=== PATIENT | female | born 1985 | race African-American/Black ===

== ENCOUNTER 2016-05-23 16:39 | Emergency (ER) | payer MEDICAID ==
[~2016-05-23] VITALS: Ht 167.6 cm; Wt 83.5 kg
[~2016-05-23 16:39] MED LIST: ALBUTEROL SULF8.5 GM INH; CYCLOBENZAPRINE10 MG ORAL; IBUPROFEN600 MG ORAL; IBUPROFEN800 MG PO; KEFLEX500 MG ORAL; NITROFURANTOIN100 M2 ORAL; NKM; NORCO 5-325 TA1 EACH ORAL; SERTRALINE HCL25 MG ORAL; TYLENOL EXTRA500 MG ORAL; ZOFRAN4 MG ORAL
--- NOTE | 2016-05-23 17:11 | Emergency Room Report ---
History of Present Illness General Chief Complaint: Dyspnea/Respdistress Source: Patient Present Illness HPI Patient presents with complaints of pain just below her left breast over the rib cage Patient reports that this pain has been intermittent over the past several months She feels area more with pain with touch Denies any cough To me the patient denied any shortness of breath however there was a note by triage regarding shortness of breath Patient reports that there is some pleuritic sensation Which likely is the report by triage Patient denies any recent travel denies any calf swelling or pain denies any previous DVTs Allergies: Coded Allergies: No Known Allergies (Unverified , 08/25/15) Patient History Past Medical History: see triage record Pertinent Family History: none Last Menstrual Period: [place] shot : 7 Para: 3 Reviewed Nursing Documentation: PMH: Agreed, PSxH: Agreed Nursing Documentation-PMH Hx Cardiac Problems: No Hx Hypertension: No Hx Pacemaker: No Hx Asthma: Yes Hx COPD: No Hx Diabetes: No Hx Cancer: No Hx Gastrointestinal Problems: No Hx Dialysis: No Hx Neurological Problems: No Hx Cerebrovascular Accident: No Hx Seizures: No Review of Systems All Other Systems: negative except mentioned in HPI Physical Exam Vital Signs Date Time Temp Pulse Resp B/P Pulse Ox O2 Delivery O2 Flow Rate FiO2 05/23/16 16:42 98.4 77 16 125/90 100 Room Air Sp02 EP Interpretation: reviewed, normal General Appearance: well appearing, no apparent distress Head: normocephalic, atraumatic Eyes: bilateral eye EOMI, bilateral eye PERRL ENT: hearing grossly normal, normal pharynx, TMs + canals normal, uvula midline Neck: full range of motion, supple, no meningismus, no bony tend Respiratory: lungs clear, normal breath sounds, no rhonchi, no respiratory distress, no retraction, no accessory muscle use Cardiovascular #1: normal peripheral pulses, regular rate, rhythm, no edema, no gallop, no JVD, no murmur, other - Patient does have some reproducible discomfort on palpation over the lower left rib cage area Gastrointestinal: normal bowel sounds, non tender, soft, no mass, no organomegaly, non-distended, no guarding, no hernia, no pulsatile mass, no rebound Genitourinary: no CVA tenderness Musculoskeletal: normal inspection Neurologic: oriented x3, responsive, 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, motor strength/ tone normal, sensory intact Psychiatric: mood/affect normal Skin: normal color, no rash, warm/dry, palpation normal Lymphatic: normal inspection, no adenopathy Medical Decision Making Diagnostic Impression: Primary Impression: Chest pain of uncertain etiology ER Course Multiple differentials are considered the regarding the patient's discomfort including but not limited to cardiac, cardiopulmonary, vascular pathology such as pulmonary embolism Patient does not have many risk factors regarding pulmonary embolism Her presentation does not appear to be in line Patient's heart rate is appropriate EKG was normal Patient has had several x-rays in the past and my differential for pneumothorax was lower given the patient's clear lung sounds Patient was also found to have a nodule previously and we did not want to expose the patient to any further radiation Patient will continue on anti-inflammatories as an outpatient process requires close outpatient followup EKG Diagnostic Results Rate: normal Rhythm: NSR ST Segments: no acute changes Rhythm Strip Diag. Results EP Interpretation: yes Rate: 78 Rhythm: NSR, no PVC's, no ectopy Last Vital Signs Date Time Temp Pulse Resp B/P Pulse Ox O2 Delivery O2 Flow Rate FiO2 05/23/16 17:02 88 18 Room Air 05/23/16 16:42 98.4 125/90 100 Status: improved Disposition: HOME, SELF-CARE Condition: Improved Scripts Ibuprofen* (MOTRIN*) 600 Mg Tablet 600 MG ORAL Q8H Y for For Pain, #20 TAB 0 Refills Prov: KELLIE LEWIS D.O. 05/23/16 Additional Instructions: Patient is provided with the discharge instructions notified to follow up with primary doctor in the next 2-3 days otherwise return to the er with any worsening symptoms. KELLIE LEWIS D.O. May 23, 2016 17:11
[2016-05-23 17:22] VITALS: BP 121/61
[2016-05-23] MEDS ORDERED: IBUPROFEN600 MG ORAL (17:23)
[2016-05-23 17:49] VITALS: BP 121/61
--- NOTE | 2016-05-26 15:53 | Cardiology Report ---
APPROVED REPORT EKG Measurement Heart [id number] Normal sinus rhythm Normal ECG
== END 2016-05-23 18:55 | disposition home or self-care (01) ==
LOC: EMR 18:54
DX: R07.9 Chest pain, unspecified (principal); Z87.09 Personal history of other diseases of the respiratory system
CPT/HCPCS: 93005; 99283

== ENCOUNTER 2016-12-14 15:33 | Emergency (ER) | payer MEDICAID ==
[~2016-12-14] VITALS: Ht 167.6 cm; Wt 86.2 kg
[2016-12-14 15:53] VITALS: BP 142/86
[2016-12-14] MEDS ORDERED: Metoclopramide 10mg/2ml Inj IVP ONE (16:00)
[2016-12-14] MEDS ORDERED: DiphenhydrAMINE 50mg/ml Inj IVP ONE (16:00)
--- NOTE | 2016-12-14 16:00 | Emergency Room Report ---
History of Present Illness General Chief Complaint: Headache Source: Patient Present Illness HPI Patient 31-year-old female presented after increased a left-sided headache a gradual onset for the past 2 weeks. Patient stated that headache at onset after she had control and time placed her left upper extremity. Patient denies any fever. She reports having no visual changes. She prior history of questionable lupus. She had not been vomiting. She denies any dysuria Allergies: Coded Allergies: No Known Allergies (Unverified , 08/25/15) Patient History Past Medical History: see triage record Last Menstrual Period: last week Now: No Reviewed Nursing Documentation: PMH: Agreed, PSxH: Agreed Nursing Documentation-PMH Past Medical History: No History, Except For Hx Cardiac Problems: No Hx Hypertension: No Hx Pacemaker: No Hx Asthma: Yes Hx COPD: No Hx Diabetes: No Hx Cancer: No Hx Gastrointestinal Problems: No Hx Dialysis: No Hx Neurological Problems: No Hx Cerebrovascular Accident: No Hx Seizures: No Review of Systems All Other Systems: negative except mentioned in HPI Physical Exam Vital Signs Date Time Temp Pulse Resp B/P Pulse Ox O2 Delivery O2 Flow Rate FiO2 12/14/16 15:42 97.9 71 18 142/86 100 Room Air Sp02 EP Interpretation: reviewed, normal General Appearance: normal inspection, well appearing, no apparent distress, alert, GCS 15, non-toxic Head: atraumatic ENT: normal ENT inspection, hearing grossly normal, normal voice Neck: normal inspection, full range of motion, supple, no bony tend Respiratory: normal inspection, lungs clear, normal breath sounds, no respiratory distress, no retraction, no wheezing Cardiovascular #1: regular rate, rhythm, no edema Gastrointestinal: normal inspection, normal bowel sounds, non tender, soft, no guarding, no hernia Genitourinary: no CVA tenderness Musculoskeletal: normal inspection, back normal, normal range of motion Neurologic: normal inspection, alert, oriented x3, responsive, 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 Because of complexity of patient's case laboratory testing. Urinalysis showed evidence of urinary tract infection. Patient was given Reglan and Benadryl with improvement in her headache. The patient nonfocal neurologic exam and does not appear to require CT imaging at this time. Patient was given prescription for dexamethasone as well as for oral antibiotics Labs Test 12/14/16 16:19 Urine Color Pale yellow Urine Appearance Clear Urine pH 8 (4.5-8.0) Urine Specific [place] 1.015 (1.005-1.035) Urine Protein Negative (NEGATIVE) Urine Glucose (UA) Negative (NEGATIVE) Urine Ketones Negative (NEGATIVE) Urine Occult Blood Negative (NEGATIVE) Urine Nitrite Negative (NEGATIVE) Urine Bilirubin Negative (NEGATIVE) Urine Urobilinogen Normal MG/DL (0.0-1.0) Urine Leukocyte Esterase 1+ (NEGATIVE) Urine RBC 0-2 /HPF (0 - 2) Urine WBC 2-4 /HPF (0 - 2) Urine Squamous Epithelial Cells Few /LPF (NONE/OCC) Urine Bacteria Few /HPF (NONE) Last Vital Signs Date Time Temp Pulse Resp B/P Pulse Ox O2 Delivery O2 Flow Rate FiO2 12/14/16 15:53 97.9 18 142/86 100 Room Air 12/14/16 15:42 71 Status: improved Disposition: HOME, SELF-CARE Condition: Stable Scripts Dexamethasone (DEXAMETHASONE) 4 Mg Tablet 4 MG PO DAILY for 3 Days, TAB Prov: Brian Soto 12/14/16 Nitrofurantoin Monohyd/M-Cryst* (MACROBID 100 MG*) 100 Mg Capsule 100 MG ORAL EVERY 12 HOURS, #14 CAP Prov: Brian Soto 12/14/16 Brian Soto Dec 14, 2016 16:00
[2016-12-14 16:36] LABS: APPEARANCE,URINE CLEAR; KETONES,URINE NEGATIVE (NEGATIVE); LEUKOCYTE ESTERASE ,URINE 1+ (NEGATIVE); NITRITE,URINE NEGATIVE (NEGATIVE); PH,URINE 8 (4.5-8.0); PROTEIN,URINE NEGATIVE (NEGATIVE); UROBILINOGEN,URINE NORMAL MG/DL (0.0-1.0)
[2016-12-14 16:51] LABS: BACTERIA,URINE FEW /HPF; RBC,URINE 0-2 /HPF (0 - 2); SQUAMOUS EPITHELIAL CELL,UR FEW /LPF (NONE/OCC)
[2016-12-14] MEDS ORDERED: NITROFURANTOIN100 M2 ORAL (16:59)
[2016-12-14] MEDS ORDERED: DEXAMETHASONE4 M1 PO (17:01)
[2016-12-14 17:06] VITALS: BP 131/81
== END 2016-12-14 17:13 | disposition home or self-care (01) ==
LOC: EMR 16:38
DX: R51 Headache (principal); J45.909 Unspecified asthma, uncomplicated
CPT/HCPCS: 81003; 96374; 96375; 99284; J1200; J2765

== ENCOUNTER 2017-09-02 05:24 | Emergency (ER) | payer MEDICAID ==
[~2017-09-02] VITALS: Ht 167.6 cm; Wt 77.6 kg
[~2017-09-02 05:24] MED LIST changes: +DEXAMETHASONE4 M1 PO
[2017-09-02] MEDS ORDERED: AZITHROMYCIN250 MG ORAL (05:46)
[2017-09-02] MEDS ORDERED: PREDNISONE20 MG ORAL (05:46)
[2017-09-02] MEDS ORDERED: ALBUTEROL SULF8.5 GM INH (05:46)
--- NOTE | 2017-09-02 05:46 | Emergency Room Report ---
History of Present Illness General Chief Complaint: Upper Respiratory Illness Source: Patient Present Illness HPI Is a 31-year-old female with history of asthma when she was younger. She presents with chief complaint of shortness of breath and coughing. Been ongoing for about a week now. Now she is coughing up thick yellowish phlegm. No nausea no vomiting. Worse with exertion and inspiration. Also with congestion and runny nose. Had fever at the beginning of the week. Allergies: Coded Allergies: No Known Allergies (Unverified , 08/25/15) Patient History Past Medical History: see triage record, old chart reviewed, asthma Past Surgical History: none Pertinent Family History: none Social History: Denies: smoking Last Menstrual Period: august 20 Now: No : 3 Para: 2 Immunizations: other Reviewed Nursing Documentation: PMH: Agreed; PSxH: Agreed Nursing Documentation-PMH Hx Cardiac Problems: No Hx Hypertension: No Hx Pacemaker: No Hx Asthma: Yes Hx COPD: No Hx Diabetes: No Hx Cancer: No Hx Gastrointestinal Problems: No Hx Dialysis: No Hx Neurological Problems: No Hx Cerebrovascular Accident: No Hx Seizures: No Review of Systems Eye: Denies: eye pain, blurred vision ENT: Reports: nose congestion; Denies: ear pain, throat swelling Respiratory: Reports: cough, shortness of breath Cardiovascular: Denies: chest pain, palpitations Gastrointestinal: Denies: abdominal pain, diarrhea, nausea, vomiting Musculoskeletal: Denies: back pain, joint pain Skin: Denies: rash Neurological: Denies: headache, numbness Endocrine: Denies: increased thirst, increased urine Hematologic/Lymphatic: Denies: easy bruising All Other Systems: negative except mentioned in HPI Physical Exam Vital Signs Date Time Temp Pulse Resp B/P (MAP) Pulse Ox O2 Delivery O2 Flow Rate FiO2 09/02/17 05:26 98.2 70 18 124/61 96 Room Air 98.2 vitals normal Sp02 EP Interpretation: reviewed, normal General Appearance: well appearing, no apparent distress, alert Head: normocephalic, atraumatic Eyes: bilateral eye PERRL, bilateral eye EOMI ENT: hearing grossly normal, normal pharynx Neck: full range of motion, supple, no meningismus Respiratory: chest non-tender, lungs clear, normal breath sounds, other - coughing fits with inspiration Cardiovascular #1: regular rate, rhythm, no murmur Gastrointestinal: normal bowel sounds, non tender, no mass, no organomegaly, no bruit, non-distended Musculoskeletal: back normal, gait/station normal, normal range of motion Psychiatric: mood/affect normal Skin: warm/dry Medical Decision Making Diagnostic Impression: Primary Impression: Upper respiratory infection Qualified Codes: J06.9 - Acute upper respiratory infection, unspecified Additional Impression: Bronchospasm, acute ER Course Patient with an upper respiratory or infection. Most likely viral. Because of the duration and color the phlegm, we'll put on antibiotics. No evidence of any sepsis, ACS, PE, dissection to name a few. Last Vital Signs Date Time Temp Pulse Resp B/P (MAP) Pulse Ox O2 Delivery O2 Flow Rate FiO2 09/02/17 05:30 70 18 Room Air 09/02/17 05:26 98.2 124/61 96 98.2 Status: unchanged Disposition: HOME, SELF-CARE Condition: Stable Scripts Azithromycin* (ZITHROMAX*) 250 Mg Tablet 250 MG ORAL DAILY, #6 TAB 0 Refills Take two tablets by mouth today, then take one tablet by mouth daily for four days Prov: ESTELLE XIE M.D. 09/02/17 Prednisone* (PREDNISONE*) 20 Mg Tablet 60 MG ORAL DAILY, #15 TAB Prov: ESTELLE XIE M.D. 09/02/17 Albuterol Sulfate* (ALBUTEROL SULFATE MDI*) 8.5 Gm Hfa.aer.ad 2 PUFF INH Q4H PRN for cough/wheezing, #1 EA 0 Refills Prov: ESTELLE XIE M.D. 09/02/17 Patient Instructions: Upper Respiratory Infection, Adult Additional Instructions: Follow-up with your doctor in 3-5 days. Return if worse. ESTELLE XIE M.D. Sep 02, 2017 05:46
[2017-09-02 05:51] VITALS: BP 115/82
[2017-09-02 05:53] VITALS: BP 115/82
== END 2017-09-02 05:54 | disposition home or self-care (01) ==
LOC: EMR 05:48
DX: J06.9 Acute upper respiratory infection, unspecified (principal); J98.01 Acute bronchospasm
CPT/HCPCS: 99284

== ENCOUNTER 2017-09-17 20:37 | Emergency (ER) | payer MEDICAID ==
[~2017-09-17] VITALS: Ht 167.6 cm; Wt 81.6 kg
[~2017-09-17 20:37] MED LIST changes: +AZITHROMYCIN250 MG ORAL; +PREDNISONE20 MG ORAL
[2017-09-17] MEDS ORDERED: ATIVAN1 MG ORAL (21:09)
--- NOTE | 2017-09-17 21:10 | Emergency Room Report ---
History of Present Illness General Chief Complaint: General Complaint Source: Patient, Family Member Present Illness HPI Is a 31-year-old female with no significant past medical history. She presents with chief complaint of anxiety and passing out. Her grandmother just and she's been grieving very hard. According to mom she's been hyperventilating to the point of passing out. She is crying all the time. No suicidal thoughts. No nausea no vomiting. No other complaint. Allergies: Coded Allergies: No Known Allergies (Unverified , 08/25/15) Patient History Past Medical History: see triage record, old chart reviewed, asthma Past Surgical History: other Pertinent Family History: none Social History: Denies: smoking Last Menstrual Period: 08/20/17 Now: No Immunizations: other Reviewed Nursing Documentation: PMH: Agreed; PSxH: Agreed Nursing Documentation-PMH Past Medical History: No History, Except For Hx Cardiac Problems: No Hx Hypertension: No Hx Pacemaker: No Hx Asthma: Yes Hx COPD: No Hx Diabetes: No Hx Cancer: No Hx Gastrointestinal Problems: No Hx Dialysis: No Hx Neurological Problems: No Hx Cerebrovascular Accident: No Hx Seizures: No Review of Systems Eye: Denies: eye pain, blurred vision ENT: Denies: ear pain, nose congestion, throat swelling Respiratory: Denies: cough, shortness of breath Cardiovascular: Denies: chest pain, palpitations Gastrointestinal: Denies: abdominal pain, diarrhea, nausea, vomiting Musculoskeletal: Denies: back pain, joint pain Skin: Denies: rash Psychiatric: Reports: depressed feelings, emotional problems Neurological: Denies: headache, numbness Endocrine: Denies: increased thirst, increased urine Hematologic/Lymphatic: Denies: easy bruising All Other Systems: negative except mentioned in HPI Physical Exam Vital Signs Date Time Temp Pulse Resp B/P (MAP) Pulse Ox O2 Delivery O2 Flow Rate FiO2 09/17/17 20:40 98.5 82 16 131/73 97 Room Air 98.4 vitals normal Sp02 EP Interpretation: reviewed, normal General Appearance: well appearing, no apparent distress, alert Head: normocephalic, atraumatic Eyes: bilateral eye PERRL, bilateral eye EOMI ENT: hearing grossly normal, normal pharynx Neck: full range of motion, supple, no meningismus Respiratory: chest non-tender, lungs clear, normal breath sounds Cardiovascular #1: regular rate, rhythm, no murmur Gastrointestinal: normal bowel sounds, non tender, no mass, no organomegaly, no bruit, non-distended Musculoskeletal: back normal, gait/station normal, normal range of motion Neurologic: alert, oriented x3 Psychiatric: depressed affect - crying Skin: warm/dry Medical Decision Making Diagnostic Impression: Primary Impression: Grief reaction ER Course Patient presents with acute grief reaction. Not suicidal homicidal. We'll discharge home. Last Vital Signs Date Time Temp Pulse Resp B/P (MAP) Pulse Ox O2 Delivery O2 Flow Rate FiO2 09/17/17 20:40 98.5 82 16 131/73 97 Room Air 98.4 Status: improved Disposition: HOME, SELF-CARE Condition: Stable Scripts Lorazepam* (ATIVAN*) 1 Mg Tablet 1 MG ORAL THREE TIMES A DAY, #21 TAB Prov: ESTELLE XIE M.D. 09/17/17 Additional Instructions: Follow-up with your doctor in 7 days. Return if symptom worsen. ESTELLE XIE M.D. September 17, 2017 21:10
[2017-09-17] MEDS ORDERED: LORazepam Inj 2mg/ml 1ml IM ONE (21:15)
[2017-09-17 21:16] VITALS: BP 0/0
== END 2017-09-17 21:16 | disposition home or self-care (01) ==
LOC: EMR 21:08
DX: F43.22 Adjustment disorder with anxiety (principal); J45.909 Unspecified asthma, uncomplicated
CPT/HCPCS: 96372; 99283

== ENCOUNTER 2019-04-16 06:04 | Emergency (ER) | payer OTHER, MEDICAID ==
[~2019-04-16] VITALS: Ht 167.6 cm; Wt 88.0 kg
[~2019-04-16 06:04] MED LIST changes: +ATIVAN1 MG ORAL
[2019-04-16 06:24] VITALS: BP 109/60
--- NOTE | 2019-04-16 06:33 | Emergency Room Report ---
History of Present Illness General Chief Complaint: Flu Like Symptoms Source: Patient Present Illness HPI 33-year-old female who presents with cough for 1 day duration. Associated with chills and soreness on chest and back. She states the reason she is here is mainly her chest pressure. She reports that since last night she has had severe pressure in her chest that is not improving this morning. She notes that she also has back aches however the chest pressure is not pain that radiates to the back. She denies any fevers, chills. She did note episodes of loose stools and vomiting yesterday. She has no episodes today and has been tolerating liquids. Patient states she received vaccination for influenza while she was at [employer] on April 10 No smoking history Allergies: Coded Allergies: No Known Allergies (Unverified , 08/25/15) Patient History Past Medical History: none Now: No Nursing Documentation-H Past Medical History: No History, Except For Hx Cardiac Problems: No Hx Hypertension: No Hx Pacemaker: No Hx Asthma: Yes Hx COPD: No Hx Diabetes: No Hx Cancer: No Hx Gastrointestinal Problems: No Hx Dialysis: No Hx Neurological Problems: No Hx Cerebrovascular Accident: No Hx Seizures: No Review of Systems Constitutional: Denies: chills, fever Respiratory: Reports: cough; Denies: shortness of breath Cardiovascular: Reports: chest pain; Denies: palpitations Gastrointestinal: Denies: diarrhea, vomiting Genitourinary: Denies: hematuria, pain Musculoskeletal: Reports: back pain; Denies: joint swelling Skin: Denies: rash, lesions Neurological: Denies: headache, dizziness Physical Exam Vital Signs Date Time Temp Pulse Resp B/P (MAP) Pulse Ox O2 Delivery O2 Flow Rate FiO2 04/16/19 06:12 98.2 72 14 113/69 (84) 97 Room Air Sp02 EP Interpretation: reviewed General Appearance: well appearing, no apparent distress, non-toxic Head: normocephalic, atraumatic Eyes: bilateral eye normal inspection ENT: hearing grossly normal, EOM grossly intact, moist mucus membranes Neck: supple Respiratory: lungs clear, normal breath sounds, no rhonchi, no respiratory distress, no retraction, no accessory muscle use, speaking full sentences Cardiovascular #1: normal inspection, normal peripheral pulses, regular rate, rhythm, no edema, normal capillary refill Cardiovascular #2: 2+ radial (R), 2+ radial (L) Gastrointestinal: soft, non-distended Rectal: deferred Genitourinary: no CVA tenderness Musculoskeletal: normal inspection, back normal, moves extm spontaneously, no lower extremity edema Neurologic: grossly normal Psychiatric: mood/affect normal Skin: warm/dry, normal turgor Medical Decision Making ER Course 33-year-old female who presents with chest pain since yesterday reports associated cough and body aches. She reports getting the influenza vaccination several days ago. Differential includes ACS versus pneumonia versus viral infection Will perform lab testing, EKG, x-ray INFLUENZA A ANTIGEN Final INFLUENZAE A RESULT NEGATIVE INFLUENZA B ANTIGEN Final INFLUENZAE B RESULT NEGATIVE Laboratory Tests Test 04/16/19 06:40 White Blood Count 7.5 K/UL (4.8-10.8) Red Blood Count 3.95 M/UL (4.20-5.40) L Hemoglobin 11.0 G/DL (12.0-16.0) L Hematocrit 33.1 % (37.0-47.0) L Mean Corpuscular Volume 84 FL (80-99) Mean Corpuscular Hemoglobin 28.0 PG (27.0-31.0) Mean Corpuscular Hemoglobin Concent 33.4 G/DL (32.0-36.0) Red Cell Distribution Width 11.9 % (11.6-14.8) Platelet Count 330 K/UL (150-450) Mean Platelet Volume 5.7 FL (6.5-10.1) L Neutrophils (%) (Auto) 61.0 % (45.0-75.0) Lymphocytes (%) (Auto) 29.1 % (20.0-45.0) Monocytes (%) (Auto) 8.4 % (1.0-10.0) Eosinophils (%) (Auto) 1.2 % (0.0-3.0) Basophils (%) (Auto) 0.4 % (0.0-2.0) Sodium Level 143 MMOL/L (136-145) Potassium Level 3.8 MMOL/L (3.5-5.1) Chloride Level 109 MMOL/L (98-107) H Carbon Dioxide Level 25 MMOL/L (21-32) Anion Gap 9 mmol/L (5-15) Blood Urea Nitrogen 13 mg/dL (7-18) Creatinine 0.8 MG/DL (0.55-1.30) Estimate Glomerular Filtration Rate > 60 mL/min (>60) Glucose Level 102 MG/DL (74-106) Calcium Level 8.9 MG/DL (8.5-10.1) Total Bilirubin 0.3 MG/DL (0.2-1.0) Aspartate Amino Transferase (AST) 13 U/L (15-37) L Alanine Aminotransferase (ALT) 22 U/L (12-78) Alkaline Phosphatase 82 U/L (46-116) Troponin I 0.008 ng/mL (0.000-0.056) Total Protein 7.5 G/DL (6.4-8.2) Albumin 3.3 G/DL (3.4-5.0) L Globulin 4.2 g/dL Albumin/Globulin Ratio 0.8 (1.0-2.7) L Microbiology Date/Time Source Procedure Growth Status 04/16/19 06:40 Nasal Nares - Final Complete 04/16/19 06:40 Nasal Nares - Final Complete Lab Results Impression CBC shows mild anemia, CMP shows mild hyperchloremia and microbiology was negative influenza. Patient's troponin within normal limits. EKG Diagnostic Results EKG Time: 06:40 Rate: normal - 63 Rhythm: NSR ST Segments: no acute changes Other Impression LA interval 210, first-degree AV block Rhythm Strip Diag. Results Rhythm Strip Time: 07:44 EP Interpretation: yes Rhythm: NSR Chest X-Ray Diagnostic Results Chest X-Ray Diagnostic Results : Chest X-Ray Ordered: Yes # of Views/Limited/Complete: 2 View Indication: Chest Pain Interpretation: no consolidation, no effusion, no pneumothorax, no acute cardiopulmonary disease Impression: No acute disease Electronically Signed by: Will Reevaluation Time: 07:41 Last Vital Signs Date Time Temp Pulse Resp B/P (MAP) Pulse Ox O2 Delivery O2 Flow Rate FiO2 04/16/19 08:09 98.1 82 17 108/74 100 Room Air Reevaluation Impression Patient's chest x-ray within normal limits. Since lab testing within normal limits. Patient stable for outpatient follow-up and discharge. Recommended to see primary care doctor and follow-up with a pharmaceutical worker Disposition: HOME, SELF-CARE Condition: Stable Scripts No Active Prescriptions or Reported Meds Referrals: [facility] Patient Instructions: Chest Wall Pain Additional Instructions: Please follow-up with your primary care doctor or clinic listed above to be reevaluated for chest pain. Follow-up with pharmaceutical worker as recommended by primary care doctor. Return to emergency room with any new symptoms or worsening symptoms Rafi Solis M.D. Apr 16, 2019 06:33
[2019-04-16 07:10] VITALS: BP 114/64
[2019-04-16 07:12] LABS: BASOPHILS % (AUTO) 0.4 % (0.0-2.0); EOSINOPHILS % (AUTO) 1.2 % (0.0-3.0); HEMATOCRIT 33.1 % (37.0-47.0); LYMPHOCYTES % (AUTO) 29.1 % (20.0-45.0); MEAN CORPUSCULAR VOLUME 84 FL (80-99); MONOCYTES % (AUTO) 8.4 % (1.0-10.0); PLATELET COUNT 330 K/UL (150-450); RED BLOOD COUNT 3.95 M/UL (4.20-5.40); RED CELL DISTRIBUTION WIDTH 11.9 % (11.6-14.8); WHITE BLOOD COUNT 7.5 K/UL (4.8-10.8)
[2019-04-16 07:22] LABS: ANION GAP 9 mmol/L (5-15); BLOOD UREA NITROGEN 13 mg/dL (7-18); CALCIUM 8.9 MG/DL (8.5-10.1); CARBON DIOXIDE 25 MMOL/L (21-32); CHLORIDE 109 MMOL/L (98-107); CREATININE 0.8 MG/DL (0.55-1.30); POTASSIUM 3.8 MMOL/L (3.5-5.1); SODIUM 143 MMOL/L (136-145)
[2019-04-16 07:27] LABS: ALANINE AMINOTRANSFERASE 22 U/L (12-78); ALBUMIN 3.3 G/DL (3.4-5.0); ALBUMIN/GLOBULIN RATIO 0.8 (1.0-2.7); ALKALINE PHOSPHATASE 82 U/L (46-116); ASPARTATE AMINO TRANSFERASE 13 U/L (15-37); BILIRUBIN,TOTAL 0.3 MG/DL (0.2-1.0)
[2019-04-16 08:09] VITALS: BP 108/74
--- NOTE | 2019-04-16 08:10 | Diagnostic Imaging Report ---
EXAM: XR Chest, 2 Views CLINICAL HISTORY: Chest pain TECHNIQUE: Frontal and lateral views of the chest. COMPARISON: No relevant prior studies available. FINDINGS: Lungs: The extreme lung apices are not in the [id number] on the frontal view. No consolidation. Pleural space: Unremarkable. No pleural effusions. No pneumothorax. Heart: Unremarkable. No cardiomegaly. Mediastinum: Unremarkable. Bones/joints: Unremarkable. IMPRESSION: No acute cardiopulmonary process.
== END 2019-04-16 08:10 | disposition home or self-care (01) ==
LOC: EMR 07:08
DX: R05 Cough (principal); R07.9 Chest pain, unspecified
CPT/HCPCS: 36415; 71046; 80053; 84484; 85025; 86710; 93005; 99284

== ENCOUNTER 2019-07-04 19:44 | Emergency (ER) | payer OTHER, MEDICAID ==
[~2019-07-04] VITALS: Ht 167.6 cm; Wt 82.6 kg
[2019-07-04 20:10] VITALS: BP 108/67
--- NOTE | 2019-07-04 20:10 | NUR ---
ER Nurse Note: Pt walked in c/o cough and chest pain for over week. Pt stated she has been taking OTC meds but not effective. Pt VSS, no fever. Pt statd pain is d/t cough.
--- NOTE | 2019-07-04 20:12 | Emergency Room Report ---
History of Present Illness General Chief Complaint: Upper Respiratory Illness Source: Patient Present Illness HPI Patient presents with complaints of cough over the past 7 days Patient reports that it has caused some tightness in the upper chest area with the cough she had some phlegm production before at this time is improved Denies any recent travel she does have sick contact at home Denies any fevers denies any rash denies any vomiting with the cough Allergies: Coded Allergies: No Known Allergies (Unverified , 08/25/15) Patient History Past Medical History: see triage record Last Menstrual Period: depo Now: No Reviewed Nursing Documentation: PMH: Agreed; PSxH: Agreed Nursing Documentation-PMH Past Medical History: No History, Except For Hx Cardiac Problems: No Hx Hypertension: No Hx Pacemaker: No Hx Asthma: Yes Hx COPD: No Hx Diabetes: No Hx Cancer: No Hx Gastrointestinal Problems: No Hx Dialysis: No Hx Neurological Problems: No Hx Cerebrovascular Accident: No Hx Seizures: No Review of Systems All Other Systems: negative except mentioned in HPI Physical Exam Vital Signs Date Time Temp Pulse Resp B/P (MAP) Pulse Ox O2 Delivery O2 Flow Rate FiO2 07/04/19 20:04 98.8 84 20 108/67 (81) 98 Room Air Sp02 EP Interpretation: reviewed, normal General Appearance: well appearing, no apparent distress Head: normocephalic, atraumatic Eyes: bilateral eye PERRL, bilateral eye EOMI ENT: hearing grossly normal, normal pharynx, TMs + canals normal, uvula midline Neck: full range of motion, supple, no meningismus, no bony tend Respiratory: lungs clear, normal breath sounds, no rhonchi, no respiratory distress, no retraction, no accessory muscle use Cardiovascular #1: normal peripheral pulses, regular rate, rhythm, no edema, no gallop, no JVD, no murmur Gastrointestinal: normal bowel sounds, non tender, soft, no mass, no organomegaly, non-distended, no guarding, no hernia, no pulsatile mass, no rebound Genitourinary: no CVA tenderness Musculoskeletal: normal inspection Neurologic: motor strength/tone normal, sliver former III-XII nml as tested, oriented x3 , sensory intact, responsive Psychiatric: mood/affect normal Skin: no rash Lymphatic: normal inspection, no adenopathy Medical Decision Making Diagnostic Impression: Primary Impression: Upper respiratory infection ER Course Multiple differentials including but not limited to pneumonia, bronchitis, URI entertained Patient also has to consider possible allergens she has had significant amount of presentations with cough episode This is discussed with her and she will likely require outpatient testing at this time treated symptomatically Lungs sounds are clear not require emergency CT or chest x-ray and will have close outpatient follow-up Last Vital Signs Date Time Temp Pulse Resp B/P (MAP) Pulse Ox O2 Delivery O2 Flow Rate FiO2 07/04/19 20:04 98.8 84 20 108/67 (81) 98 Room Air Status: unchanged Disposition: HOME, SELF-CARE Condition: Stable Scripts Dextromethorphan Hb/Doxylamine (Robitussin Nighttime Cough Dm) 237 Ml Liquid 10 ML PO QHS for 5 Days, ML Prov: Doron Lynch DO 07/04/19 Cetirizine Hcl* (ZYRTEC*) 10 Mg Tablet 10 MG ORAL DAILY, #15 TAB 0 Refills Prov: Doron Lynch DO 07/04/19 Additional Instructions: Patient is provided with the discharge instructions notified to follow up with primary doctor in the next 2-3 days otherwise return to the er with any worsening symptoms. Please note that this report is being documented using [email or web address] technology. This can lead to erroneous entry secondary to incorrect interpretation by the dictating instrument. Doron Lynch DO Jul 04, 2019 20:12
[2019-07-04] MEDS ORDERED: ROBITUSSIN NIG237 M1 PO (20:14)
[2019-07-04] MEDS ORDERED: ZYRTEC10 MG ORAL (20:14)
[2019-07-04 20:30] VITALS: BP 108/67
--- NOTE | 2019-07-04 20:30 | NUR ---
ED Nurse Note: All orders completed per ER PA orders. Pt cleared by health care Provider for discharge. DC instructions/prescription was given and explained to pt and verbalized understanding of teachings. Instructed pt to follow up with primary care physcian within one week. All medical deviecs such as ID band removed. Pt is AAO x4, ambulatory and left with all personal belongings.
== END 2019-07-04 20:30 | disposition home or self-care (01) ==
LOC: EMR 20:30
DX: J06.9 Acute upper respiratory infection, unspecified (principal); J45.909 Unspecified asthma, uncomplicated
CPT/HCPCS: 99282

== ENCOUNTER 2019-08-01 12:29 | Emergency (ER) | payer OTHER, MEDICAID ==
[~2019-08-01] VITALS: Ht 167.6 cm; Wt 88.5 kg
[~2019-08-01 12:29] MED LIST changes: +ROBITUSSIN NIG237 M1 PO; +ZYRTEC10 MG ORAL
--- NOTE | 2019-08-01 12:55 | NUR ---
ED Nurse Note: Pt walked in from home c/o burning and itchiness on her vagina and labia x 3 days. Pt reports unprotected sex three days ago. Pt denies discharge. Respirations even and unlabored on room air. Vitals stable as documented.
[2019-08-01 12:57] VITALS: BP 125/69
[2019-08-01 13:09] LABS: APPEARANCE,URINE CLEAR; BILIRUBIN, URINE NEGATIVE (NEGATIVE); COLOR,URINE AMBER; GLUCOSE, URINE (UA) NEGATIVE (NEGATIVE); KETONES,URINE 1+ (NEGATIVE); LEUKOCYTE ESTERASE ,URINE 3+ (NEGATIVE); NITRITE,URINE NEGATIVE (NEGATIVE); PH,URINE 6 (4.5-8.0); PROTEIN,URINE 2+ (NEGATIVE); UROBILINOGEN,URINE 1 MG/DL (0.0-1.0)
[2019-08-01] MEDS ORDERED: Lidocaine 1% MPF 10mg/ml 5ml INJ ONE (13:30)
[2019-08-01] MEDS ORDERED: Azithromycin 250mg tab ORAL ONE (13:30)
--- NOTE | 2019-08-01 14:24 | Emergency Room Report ---
History of Present Illness General Chief Complaint: Female Urogenital Problems Source: Patient Present Illness HPI 33-year-old female presents to the emergency department complaining of 9 out of 10 in severity painful rash on external genitalia x 2 days. Recently back with her after 2 month break and states she had onset of symptoms after having unprotected intercourse with him. She denies or suspicion of . Patient denies notable discharge. Patient denies urinary frequency , hematuria or urgency. Patient denies dysuria. She denies swollen tender lymph nodes. Patient denies history of STI. She denies recent abx. use. COVID-19 risk:Contact w/high r: No COVID-19 risk:Travel to affect: No Has patient experienced willis: No Allergies: Coded Allergies: No Known Allergies (Unverified , 08/25/15) Patient History Past Medical History: see triage record Past Surgical History: none Pertinent Family History: none Now: No Reviewed Nursing Documentation: PMH: Agreed; PSxH: Agreed Nursing Documentation-PMH Hx Cardiac Problems: No Hx Hypertension: No Hx Pacemaker: No Hx Asthma: Yes Hx COPD: No Hx Diabetes: No Hx Cancer: No Hx Gastrointestinal Problems: No Hx Dialysis: No Hx Neurological Problems: No Hx Cerebrovascular Accident: No Hx Seizures: No Review of Systems All Other Systems: negative except mentioned in HPI Physical Exam Vital Signs Date Time Temp Pulse Resp B/P (MAP) Pulse Ox O2 Delivery O2 Flow Rate FiO2 08/01/19 12:50 98.2 79 18 125/69 (87) 98 Room Air Sp02 EP Interpretation: reviewed, normal General Appearance: no apparent distress, alert, GCS 15, non-toxic Head: normocephalic, atraumatic Eyes: bilateral eye normal inspection, bilateral eye PERRL ENT: hearing grossly normal, normal voice Neck: full range of motion Respiratory: lungs clear, normal breath sounds, speaking full sentences Cardiovascular #1: regular rate, rhythm Gastrointestinal: normal bowel sounds, non tender, soft, non-distended, no guarding Genitourinary: normal inspection, no CVA tenderness, cervix normal, other - slight white d/c noted, there is moderate erythematous papules some of which look ulcerated. the rash is localized to the external labia. Musculoskeletal: back normal, normal range of motion, gait/station normal, non- tender Neurologic: alert, motor strength/tone normal, oriented x3, sensory intact, responsive, speech normal Psychiatric: judgement/insight normal Lymphatic: no adenopathy Medical Decision Making PA Attestation Dr. Polk Is my supervising Physician whom patient management has been discussed with. Diagnostic Impression: Primary Impression: UTI (urinary tract infection) Qualified Codes: N30.01 - Acute cystitis with hematuria Additional Impression: Contact with or exposure to venereal diseases ER Course 33-year-old female presents to the emergency department complaining of 9 out of 10 in severity painful rash on external genitalia x 2 days. Recently back with her after 2 month break and states she had onset of symptoms after having unprotected intercourse with him. She denies or suspicion of . Patient denies notable discharge. Patient denies urinary frequency , hematuria or urgency. Patient denies dysuria. She denies swollen tender lymph nodes. Patient denies history of STI. She denies recent abx. use. Ddx considered but are not limited to UTi , Pyelo, STI, Stone, Cystitis, vaginal laceration, vaginitis. Vital signs: are WNL, pt. is afebrile H& PE are most consistent with: Herpes outbreak and possible vaginitis. ORDERS: - UA labs are attached--POSITIVE FOR UTI - [place] : few bacteria and wbc, no clue, yeast or trich ED INTERVENTIONS: - Rocephin IM -Azithromycin PO DISCHARGE: At this time pt. is stable for d/c to home. Will provide printed patient care instructions, and any necessary prescriptions. Care plan and follow up instructions have been discussed with the patient prior to discharge. discussed with the patient prior to discharge. Labs Test 08/01/19 13:00 Urine Color [place] Urine Appearance Clear Urine pH 6 (4.5-8.0) Urine Specific [place] 1.020 (1.005-1.035) Urine Protein 2+ (NEGATIVE) Urine Glucose (UA) Negative (NEGATIVE) Urine Ketones 1+ (NEGATIVE) Urine Blood 3+ (NEGATIVE) Urine Nitrite Negative (NEGATIVE) Urine Bilirubin Negative (NEGATIVE) Urine Ictotest Negative (NEGATIVE) Urine Urobilinogen 1 MG/DL (0.0-1.0) Urine Leukocyte Esterase 3+ (NEGATIVE) Urine RBC 10-15 /HPF (0 - 2) Urine WBC 40-60 /HPF (0 - 2) Urine Squamous Epithelial Cells Many /LPF (NONE/OCC) Urine Bacteria Moderate /HPF (NONE) Urine HCG, Qualitative Negative (NEGATIVE) Last Vital Signs Date Time Temp Pulse Resp B/P (MAP) Pulse Ox O2 Delivery O2 Flow Rate FiO2 08/01/19 12:57 98.2 84 18 125/69 98 Room Air Status: improved Disposition: HOME, SELF-CARE Condition: Stable Scripts Nitrofurantoin Monohyd/M-Cryst* (MACROBID 100 MG*) 100 Mg Capsule 100 MG ORAL EVERY 12 HOURS for 7 Days, #14 CAP Prov: Kathrine Figueroa 08/01/19 Valacyclovir Hcl* (VALTREX*) 500 Mg Tablet 500 MG ORAL THREE TIMES A DAY for 10 Days, #30 TAB 0 Refills Prov: Kathrine Figueroa 08/01/19 Referrals: [facility],REFERRING (PCP) Patient Instructions: Urinary Tract Infection Additional Instructions: Take medications as directed. Follow up with a Primary Care Provider in 3-5 days, even if your symptoms have resolved. Return sooner to ED if new symptoms occur, or current symptoms become worse. - Please note that this Emergency Department Report was dictated using [employer] operator helper technology software, occasionally this can lead to erroneous entry secondary to interpretation by the dictation equipment. Kathrine Figueroa Aug 01, 2019 14:24
[2019-08-01] MEDS ORDERED: VALTREX500 MG ORAL (14:26)
[2019-08-01] MEDS ORDERED: NITROFURANTOIN100 M2 ORAL (14:26)
[2019-08-01 14:45] VITALS: BP 128/74
--- NOTE | 2019-08-01 14:45 | NUR ---
ER DISCHARGE NOTE: Patient is cleared to be discharged per ERMD, pt is aox4, on room air, with stable vital signs as documented. pt was given dc instructions and was able to verbalize understanding, pt id band removed. pt is able to ambulate with steady gait. pt took all belongings.
== END 2019-08-01 14:45 | disposition home or self-care (01) ==
LOC: EMR 13:15
DX: N30.01 Acute cystitis with hematuria (principal); Z20.2 Contact with and (suspected) exposure to infections with a predominantly sexual mode of transmission
CPT/HCPCS: 81003; 81025; 87086; 87210; 96372; 96374; 99284; J0696